=== PATIENT | male | born 1995 | race Caucasian/White ===

== ENCOUNTER → 2021-05-17 17:44 | Outpatient (BNVA) | payer BC, SELFPAY | PROVIDERS: Visit Provider Nurse Practitioner | DX: M79.642 Pain in left hand (principal); R60.0 Localized edema; W19.XXXA Unspecified fall, initial encounter | CPT/HCPCS: 73130 ==

== ENCOUNTER 2021-08-12 08:57 | Outpatient (CLI) | payer BC, SELFPAY ==
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
== END 2021-08-12 08:58 | disposition home or self-care (01) ==
PROVIDERS: Visit Provider Nurse Practitioner Family
DX: M54.50 Low back pain, unspecified (principal)
CPT/HCPCS: 72110

== ENCOUNTER → 2021-10-27 18:04 | Outpatient (BNVA) | payer BC, SELFPAY | PROVIDERS: Visit Provider Registered Nurse Neonatal Intensive Care | DX: U07.1 COVID-19 (principal) | CPT/HCPCS: 87426 ==